=== PATIENT | male | born 1990 | race Hispanic/Latino ===

== ENCOUNTER 2023-12-06 08:01 | Emergency (ER) | payer OTHER ==
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
[2023-12-06 11:30] LABS: Anion Gap 5.7 mEq/L (5.0-15.0); Potassium 3.7 mEq/L (3.5-5.1)
[2023-12-06 12:28] LABS: Absolute Eosinophils 0.1 K/uL (0-0.5); Absolute Monocytes 0.5 K/uL (0.1-1.3); Absolute Neutrophil 8.8 K/uL (1.8-8.0); Basophils % 0.2 % (0-1.3); Eosinophils % 0.6 % (0-4.4); Hematocrit 37.3 % (39.6-49.0); Hemoglobin 12.6 g/dL (13.6-17.9); Lymphocytes % 9.3 % (15.3-44.8); MCH 30.9 pg (27.0-35.0); MCHC 33.7 g/dL (32.0-36.0); MCV 91.7 fL (80-100); MPV 8.9 fL (7.6-11.3); Monocytes % 5.1 % (3.3-12.3); Neutrophils % 84.8 % (41.7-73.7); Platelets 189 thou/uL (152-406); RBC Red Blood Cell Count 4.07 M/uL (4.33-5.43); Red Cell Distribution Width 13.4 % (12.1-15.2)
[2023-12-07 14:38] VITALS: BP 127/73; TEMP 97.9; O2SAT 100
== END 2023-12-06 10:08 | disposition home or self-care (01) ==
LOC: ER 08:01
DX: S21.112A Laceration without foreign body of left front wall of thorax without penetration into thoracic cavity, initial encounter (principal); S21.119A Laceration without foreign body of unspecified front wall of thorax without penetration into thoracic cavity, initial encounter; S21.212A Laceration without foreign body of left back wall of thorax without penetration into thoracic cavity, initial encounter
CPT/HCPCS: 85025; 80048; 36415; 71260; 74177; 96360; 99285; Q9967